=== PATIENT | female | born 1950 | race African-American/Black ===

== ENCOUNTER → 2016-05-31 | Outpatient (CLI) | payer MEDICARE ==
[~2016-05-31] MED LIST: ALLOPURINOL300 MG PO; ASPIRIN EC81 M1 PO; CLOPIDOGREL75 MG PO; DESYREL50 MG PO; FAMOTIDINE PO; IMDUR-ER60 M1 PO; KCL PO; LASIX20 MG PO; LIPITOR80 MG PO; LOTREL 10/20 MG1 CAP PO; METOPROLOL SUC100 MG PO; MOTION RELIEF25 MG PO; NITROSTAT0.4 MG SL; RANEXA500 MG PO; TRIAMCINOLONE A15 G2 EXT; VITAMIN B COMP1 EACH PO; ZANAFLEX4 M1 PO
--- NOTE | ~2016-05-31 | US37 ---
[facility] A Service of [facility] & [facility] RADIOLOGY TEXT RESULTS PATIENT: CHUY BAUTISTA LOCATION: CNIV : 48 UNIT #: [id number] AGE: [address]: JEANINE VALLEJO APRN SEX: F ORDER DR: [id number] [facility] [address] [place], [place] [address] [id number] O MR#: [id number] Acc #: [id number] NAME: CHUY BAUTISTA : 1950 SEX: F STUDY DATE/TIME: 05/31/2016 9:14 UNIT: CNIV ROOM: STUDY DESCRIPTION: US Carotid W/Doppler Bilateral Attending Physician: Jeanine Vallejo Aprn Referring Physician: Jeanine Vallejo Aprn Ordering Physician: Jeanine Vallejo Aprn Primary Care Physician: Luther Mcgowan Jr., A.P.R.N. MEDICAL IMAGING REPORT This report is preliminary unless electronic signature is present EXAM Bilateral carotid duplex. DATE OF EXAM 05/31/2016 CLINICAL HISTORY Carotid atherosclerosis. CLINICAL FINDINGS There is patent flow seen throughout the right common carotid, internal carotid and external carotid arteries. There is calcification noted throughout these vessels. The common carotid artery appears diffuse, homogeneous, and regular appearing. The right carotid bifurcation appears to have heterogeneous, and irregular appearing plaque. The internal carotid artery plaque characteristics are also irregular, and heterogeneous. The right common carotid artery peak velocity is 142 cm/sec. The right internal carotid artery peak systolic over end diastolic velocities are: Proximal 158/31 cm/sec, mid 116/29 cm/sec, distal 86/24 cm/sec. The right external carotid artery peak velocity is 109 cm/sec, and vertebral artery 77 cm/sec. The right ICA:CCA ratio is 1.1. There is patent flow seen throughout the left common carotid, internal carotid and external carotid arteries. The left carotid bifurcation has dense appearing, heterogeneous, and irregular plaque, which is echogenic. This extends into the external carotid artery, as well as the internal carotid artery. The left common carotid artery peak velocity is 98 cm/sec. The left internal carotid artery peak systolic velocity over end-diastolic velocities are: Proximal 465/88 cm/sec, mid 105/24 cm/sec, distal 82/24 cm/sec. The left external carotid artery peak velocity is 133 cm/sec, and vertebral artery 109 cm/sec. The left ICA:CCA ratio is STS. [facility] A Service of [facility] & [facility] RADIOLOGY TEXT RESULTS PATIENT: CHUY BAUTISTA LOCATION: CNIV : 48 UNIT #: [id number] AGE: [address]: JEANINE VALLEJO, ELISEO SEX: F ORDER DR: 4.8. IMPRESSION 1. There is moderate atherosclerosis of the right carotid artery, which is consistent with 50% to 69% stenosis by duplex criteria. This finding is unchanged from the 11/2015 study. 2. The left carotid artery has a high-grade stenosis, greater than 70%. This represents an increase from the 11/2015 study. 3. Vertebral flow is antegrade bilaterally. Dictated by... Vasquez Hdez M.D. THIS IS AN ELECTRONICALLY VERIFIED REPORT Vasquez Hdez M.D. at 06/04/2016 8:21 AM NESTOR/nik TD: 05/31/2016 22:47 JOB #: [id number] MEDICAL IMAGING REPORT COPY
--- NOTE | ~2016-05-31 | US83 ---
[facility] A Service of [facility] & [facility] RADIOLOGY TEXT RESULTS PATIENT: CHUY BAUTISTA LOCATION: CNIV : 48 UNIT #: [id number] AGE: [address]: JEANINE VALLEJO APRN SEX: F ORDER DR: [id number] [facility] [address] [place], [place] [address] [id number] O MR#: [id number] Acc #: [id number] NAME: CHUY BAUTISTA : 1950 SEX: F STUDY DATE/TIME: 05/31/2016 9:35 UNIT: CNIV ROOM: STUDY DESCRIPTION: LE [employer] Attending Physician: Jeanine Vallejo Aprn Referring Physician: Jeanine Vallejo Aprn Ordering Physician: Jeanine Vallejo Aprn Primary Care Physician: Luther Mcgowan Jr., A.P.R.N. MEDICAL IMAGING REPORT This report is preliminary unless electronic signature is present EXAM Left lower extremity arterial duplex CLINICAL HISTORY Peripheral arterial disease FINDINGS The left common femoral artery has biphasic flow with a peak velocity of 189 cm/second. There is some mild calcification noted in the vessels. The left superficial femoral artery has the following characteristics: Proximal monophasic flow, 133 cm/sec, upper thigh monophasic flow 236 cm/second, mid thigh monophasic flow, 135 cm/sec, mid thigh 441 cm/sec and distal monophasic flow 41 cm/sec. The left profunda artery is patent with biphasic flow and velocity of 123 cm/second. The left popliteal artery has biphasic flow with a velocity of 52 cm/sec, tibial peroneal trunk monophasic flow with a velocity of 46 cm/sec, and posterior tibial artery monophasic flow with a velocity of 48 cm/sec. Peroneal artery monophasic flow with a velocity of 23 cm/sec. Anterior tibial artery monophasic flow with peak velocity of 35 cm/sec. IMPRESSION 1. There appears to be a high grade stenosis, likely greater than 75% of the mid superficial femoral artery. 2. There is 3 vessel runoff visualized. Dictated by... Vasquez Ketty, M.D. THIS IS AN ELECTRONICALLY VERIFIED REPORT [facility] A Service of [facility] & [facility] RADIOLOGY TEXT RESULTS PATIENT: CHUY BAUTISTA LOCATION: CNIV : 48 UNIT #: [id number] AGE: [address]: JEANINE VALLEJO APRN SEX: F ORDER DR: Vasquez Hdez M.D. at 06/04/2016 8:18 AM NESTOR/cinthia TD: 05/31/2016 23:21 JOB #: [id number] MEDICAL IMAGING REPORT COPY
--- NOTE | ~2016-05-31 | US135 ---
[facility] A Service of [facility] & [facility] RADIOLOGY TEXT RESULTS PATIENT: CHUY BAUTISTA LOCATION: CNIV : 48 UNIT #: [id number] AGE: [address]: JEANINE VALLEJO APRN SEX: F ORDER DR: [id number] [facility] [address] [place], [place] [address] [id number] O MR#: [id number] Acc #: [id number] NAME: CHUY BAUTISTA : 1950 SEX: F STUDY DATE/TIME: 05/31/2016 8:55 UNIT: CNIV ROOM: STUDY DESCRIPTION: US U/L Ext Art Study Comp Allen Attending Physician: Jeanine Vallejo Aprn Referring Physician: Jeanine Vallejo Aprn Ordering Physician: Jeanine Vallejo Aprn Primary Care Physician: Luther Mcgowan Jr., A.P.R.N. MEDICAL IMAGING REPORT This report is preliminary unless electronic signature is present EXAM Ankle brachial indices with segmental pressures date of examination 05/31/2016 HISTORY Peripheral vascular disease FINDINGS The right brachial artery pressure is 166. The upper thigh pressure is 188, lower thigh 174, calf 165. The right dorsalis pedis pressure is 160, with an ankle brachial index of 0.91. The right posterior tibial pressure is 159, with an ankle brachial index of 0.90. The right digital pressure is 82, with a toe index of 0.47. The left brachial artery pressure is 176. The left upper thigh pressure is 132, lower thigh 83, calf 83. The left dorsalis pedis pressure is 79, with a ankle brachial index of 0.45. The left posterior tibial pressure is 82, with an ankle brachial index of 0.47. The left digital pressure is 40 with a toe index of 0.23. The right posterior tibial waveforms are triphasic, whereas dorsalis pedis waveforms are monophasic. The left posterior tibial and dorsalis pedis waveforms are monophasic. Pulse volume recordings demonstrate sharp upstroke and systolic peaks of the right lower extremity. The left leg pulse volume recordings demonstrate blunting at the calf level. IMPRESSION 1. The right KENYA is 0.91, consistent with mild arterial insufficiency. 2. The left KENYA is 0.47, consistent with advanced arterial insufficiency. Pulse volume recordings suggest femoral popliteal STS. [facility] A Service of [facility] RADIOLOGY TEXT RESULTS PATIENT: CHUY BAUTISTA LOCATION: CN : 48 UNIT #: [id number] AGE: [address]: JEANINE VALLEJO APRN SEX: F ORDER DR: disease. Dictated by... Vasquez Hdez M.D. THIS IS AN ELECTRONICALLY VERIFIED REPORT Vasquez Hdez M.D. at 06/07/2016 8:03 PM NESTOR/rayne TD: 05/31/2016 23:36 JOB #: [id number] MEDICAL IMAGING REPORT COPY
== END | disposition home or self-care (01) ==
LOC: CNIV 08:43
DX: I65.23 Occlusion and stenosis of bilateral carotid arteries (principal); I73.9 Peripheral vascular disease, unspecified; I77.9 Disorder of arteries and arterioles, unspecified; I65.21 Occlusion and stenosis of right carotid artery
CPT/HCPCS: 93880; 93923; 93926

== ENCOUNTER → 2016-06-04 | Outpatient (CLI) | payer MEDICARE ==
[2016-06-04 11:24] LABS: CREATININE SERUM 0.6 mg/dL (0.6-1.4); GLOM FILT RATE Estimated ABOVE60 mL/min (>60)
== END | disposition home or self-care (01) ==
LOC: CLAB 10:27
PROVIDERS: Surgery Vascular Surgery
DX: I65.23 Occlusion and stenosis of bilateral carotid arteries (principal); I77.9 Disorder of arteries and arterioles, unspecified; I73.9 Peripheral vascular disease, unspecified
CPT/HCPCS: 36415; 82565

== ENCOUNTER → 2016-06-07 | Outpatient (CLI) | payer MEDICARE ==
--- NOTE | ~2016-06-07 | CT23 ---
[facility] A Service of [facility] & [facility] RADIOLOGY TEXT RESULTS PATIENT: CHUY BAUTISTA LOCATION: CCAT : 48 UNIT #: [id number] AGE: [address]: Beth Bush MD SEX: F ORDER DR: [id number] [address] [place], [place] [address] [id number] O MR#: [id number] Acc #: [id number] NAME: CHUY BAUTISTA : 1950 SEX: F STUDY DATE/TIME: 06/07/2016 14:15 [facility] RO[facility]: STUDY DESCRIPTION: CT Angio Neck Attending Physician: Beth Bush M.D. Referring Physician: Beth Bush M.D. Ordering Physician: Beth Bush M.D. Primary Care Physician: Luther Mcgowan Jr., A.P.R.N. MEDICAL IMAGING REPORT This report is preliminary unless electronic signature is present EXAM CTA neck Please see CTA head for results. Dictated by... Brent Adams M.D. THIS IS AN ELECTRONICALLY VERIFIED REPORT Brent Adams M.D. at 06/09/2016 3:07 PM BRENDA/kirtir TD: 06/09/2016 04:57 JOB #: [id number] MEDICAL IMAGING REPORT COPY
--- NOTE | ~2016-06-07 | CT17 ---
[facility] A Service of [facility] & [facility] RADIOLOGY TEXT RESULTS PATIENT: CHUY BAUTISTA LOCATION: CCAT : 48 UNIT #: [id number] AGE: [address]: Beth Bush MD SEX: F ORDER DR: [id number] [facility] [address] [place], [place] [address] [id number] O MR#: [id number] [facility] #: [id number] NAME: CHUY BAUTISTA : 1950 SEX: F STUDY DATE/TIME: 06/07/2016 14:15 UNIT: [facility] ROOM: STUDY DESCRIPTION: CT Angio Head Attending Physician: Beth Bush M.D. Referring Physician: Beth Bsuh M.D. Ordering Physician: Beth Bush M.D. Primary Care Physician: Luther Mcgowan Jr., A.P.R.N. MEDICAL IMAGING REPORT This report is preliminary unless electronic signature is present EXAM CT scan of the head and neck with angiographic reconstructions HISTORY Left sided headache, blurred vision, dizziness intermittently for 1 year. COMPARISON There is no comparison. TECHNIQUE Patient was given 80 mL of Isovue 370 and spiral imaging was performed from the aortic arch through the brain. 3-D reconstructions of the arterial structures were generated and NASCET criteria was utilized. This CT exam was performed with one or more of the following radiation dose reduction techniques: automatic control, adjustment of mA and/or kV according to patient size, and iterative reconstruction. FINDINGS The lung apices are clear. The thyroid gland, submandibular glands and parotid glands are normal in appearance. No neck masses or adenopathy are identified. 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 Otherwise the brain is normal. VASCULAR FINDINGS: The aortic arch is normal in size. The great vessels have separate origins of the aortic arch. There are calcified plaques at their origins but I do not see any significant stenosis. The vertebral arteries both arise from subclavian arteries and the left one is dominant. The unite to form the basilar artery. There is motion effecting the distal common carotid artery images. On the left side there is at least 70% diameter stenosis in the proximal internal carotid artery. The right side does not show significant stenosis. The internal carotid arteries and the [facility] A Service of [facility] & [facility] RADIOLOGY TEXT RESULTS PATIENT: CHUY BAUTISTA [facility] UNIT #: [id number] AGE: [address]: Beth Bush MD SEX: F ORDER DR: rest of the common carotid arteries are normal in appearance. Basilar artery and posterior cerebral arteries are normal in appearance. The middle and anterior cerebral arteries are normal in appearance. No aneurysms are identified. IMPRESSION 1. There is focal stenosis at the origin of the left internal carotid artery with calcified and noncalcified plaque formation and I would estimate it to be at least 70% in diameter by NASCET criteria. 2. There is no significant stenosis on the right. 3. The rest of the arterial structures are unremarkable. 4. 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 5. Otherwise study is normal. Dictated by... Brent Adams M.D. THIS IS AN ELECTRONICALLY VERIFIED REPORT Brent Adams M.D. at 06/09/2016 3:06 PM BRENDA/rayne TD: 06/09/2016 04:44 JOB #: [id number] MEDICAL IMAGING REPORT COPY
== END | disposition home or self-care (01) ==
LOC: CCAT 13:25
DX: I65.23 Occlusion and stenosis of bilateral carotid arteries (principal); I73.9 Peripheral vascular disease, unspecified; I77.9 Disorder of arteries and arterioles, unspecified; I65.22 Occlusion and stenosis of left carotid artery
CPT/HCPCS: 70496; 70498; Q9967

== ENCOUNTER → 2016-09-19 | Outpatient (CLI) | payer MEDICARE ==
--- NOTE | ~2016-09-19 | US38 ---
[facility] A Service of [facility] & [facility] RADIOLOGY TEXT RESULTS PATIENT: CHUY BAUTISTA LOCATION: CNIV : 48 UNIT #: [id number] AGE: [address]: Gay Ceja SEX: F ORDER DR: [id number] [facility] [address] [place], [place] [address] [id number] O MR#: [id number] Acc #: [id number] NAME: CHUY BAUTISTA : 1950 SEX: F STUDY DATE/TIME: 09/19/2016 9:35 UNIT: CNIV ROOM: STUDY DESCRIPTION: US Carotid W/Doppler Unilatera Attending Physician: Gay Ceja A.P.R.N. Referring Physician: Gay Ceja A.P.R.N. Ordering Physician: Gay Ceja A.P.R.N. Primary Care Physician: Corrie Elizabeth Jr..P.RYudith MEDICAL IMAGING REPORT This report is preliminary unless electronic signature is present EXAM Left carotid duplex, 09/19/2016. HISTORY Status post left carotid endarterectomy. FINDINGS There is patent flow seen throughout the left common carotid, internal carotid, and external carotid arteries. There is mild, diffuse, homogeneous and regular-appearing plaque seen in the left common carotid artery. There is no significant atherosclerosis noted in the carotid bifurcation or internal carotid artery. The left common carotid artery has a peak velocity of 120 cm/sec. The left internal carotid artery peak systolic/end diastolic velocities are: proximal 62/24 cm/sec, mid 94/29 cm/sec, distal 85/31 cm/sec. The left external carotid artery peak velocity is 103 cm/sec, and vertebral artery is 78 cm/sec. The left ICA:CCA ratio is 0.8. IMPRESSION 1. Widely patent left carotid artery, status post endarterectomy. There is no evidence of intraluminal thrombus, stenosis, or intimal flap that is seen. 2. Vertebral flow is antegrade on the left. Dictated by... Vasquez Hdez M.D. THIS IS AN ELECTRONICALLY VERIFIED REPORT Vasquez Hdez M.D. at 09/20/2016 10:05 AM NESTOR/koffi [facility] A Service of [facility] & [facility] RADIOLOGY TEXT RESULTS PATIENT: CHUY BAUTISTA LOCATION: [facility] : 48 UNIT #: [id number] AGE: [address]: Gay Ceja SEX: F ORDER DR: TD: 09/19/2016 18:43 JOB #: [id number] MEDICAL IMAGING REPORT Page 1 of 1 COPY
== END | disposition home or self-care (01) ==
LOC: CNIV 09:19
DX: I65.23 Occlusion and stenosis of bilateral carotid arteries (principal); I77.9 Disorder of arteries and arterioles, unspecified; Z98.890 Other specified postprocedural states
CPT/HCPCS: 93882

== ENCOUNTER → 2016-10-14 | Outpatient (CLI) | payer MEDICARE | END | disposition home or self-care (01) | LOC: CRC 10:00 | DX: J44.9 Chronic obstructive pulmonary disease, unspecified (principal) | CPT/HCPCS: 94060; 94726; 94729 ==